=== PATIENT | male | born 1960 | race Caucasian/White ===

== ENCOUNTER 2025-08-10 13:26 | Observation (INO) ==
--- NOTE | 2025-08-10 13:58 | Emergency Department Note ---
Impression & Plan Chest pain, Shortness of breath ED Provider Note NAME: SHAMIR SIMMONS AGE: 65 SEX: M : 1960 ARRIVES VIA: Walk-In INFORMANT: Patient ED PROVIDER(S): Gilmer Hitchcock DO CHIEF COMPLAINT: Chest pain HPI: Patient is a 65-year-old male with a past medical history of indigestion who presents to the ER for left-sided chest pain. He notes this has been present for the past month. It comes and goes. Started this morning around 8 AM. Patient notes it has been coming and going today. Associated with shortness of breath. No arm or jaw pain. No belly pain. He did have nausea with it when it became severe. No dysuria, urgency or frequency. He notes it is better when he rests and worse when he is up moving around. ADDITIONAL HISTORY OBTAINED: provided additional history notes that he had a cough several weeks ago. Patient notes that he has not had a cough for over a week. Chronic Medical/Social Conditions Affecting Care: Per HPI PAST MEDICAL HISTORY:See Below PAST SURGICAL HISTORY:See Below FAMILY HISTORY:See Below SOCIAL HISTORY:See Below HOME MEDICATIONS:See Below ALLERGIES:See Below VITALS:See Below PHYSICAL EXAMINATION: GENERAL: Sitting up in bed, alert, well appearing, well nourished, no distress, non-toxic EYE EXAM: normal conjunctiva. PERRL and EOM's grossly intact. OROPHARYNX: no exudate, no erythema, lips, buccal mucosa, and tongue normal and mucous membranes are moist NECK: supple, no nuchal rigidity, no adenopathy, non-tender LUNGS: Clear to auscultation. Normal chest wall mechanics HEART: no murmurs, S1 normal and S2 normal ABDOMEN: abdomen soft, non-tender, normo-active bowel sounds, no masses, no rebound or guarding. BACK: Back is symmetrical on inspection and there is no deformity, no midline tenderness, no CVA tenderness. SKIN: no rashes and no bruising UPPER EXTREMITIES: upper extremities are grossly normal. Radial pulses are equal bilaterally LOWER EXTREMITIES: No pitting edema. Calves are equal bilaterally NEURO EXAM: Normal sensorium, cranial nerves II-XII grossly intact, normal speech, no gross weakness of arms, no gross weakness of legs. MEDICAL DECISION MAKING: Patient is a 65-year-old male who presents ER for above-stated complaint. IV was established and blood work was obtained. Labs showed no significant leukocytosis or anemia. BMP with LFTs bilirubin and lipase was unremarkable. Troponin was negative. Patient admits to exertional chest pain and shortness of breath that waxes and wanes. He was given nitro aspirin and morphine. Discussed case with the hospitalist for further evaluation management treatment. He notes he has been getting this off and on for the past month. Consults/Care Managements Discussions: Per [facility] Triage Nursing notes reviewed. Limited review of prior medical records performed Vital Signs: reviewed and remarkable for HTN Differential diagnosis: Cardiac ischemia, aortic dissection, pulmonary embolism, pneumothorax, pneumonia, pericarditis, myocarditis, esophageal rupture, GERD, cholecystitis, pancreatitis, musculoskeletal, as well as other pathologies. ER treatment provided: See below Diagnostics interpreted by me include EKG and cardiac monitoring as listed below: -Cardiac Monitoring: An order was placed for continuous cardiac monitoring. The monitor shows a rate of 90 with sinus rhythm. -ECG: Sinus rhythm rate 90 Normal axis T wave inversion in the inferior leads with nonspecific ST wave changes QTc 435 -Laboratory studies:Interpreted by me as stated above in MDM and shown below. Imaging studies: Xrays: As interpreted by me: Portable AP upright 1 view the chest shows no focal infiltrate CTs show: none Procedures:none Critical Care: None Past Med/Surg History Problem List (Updated 08/10/25 @ 16:52 by Gilmer Hitchcock DO) Shortness of breath (Acute) Chest pain (Acute) Small intestinal bacterial overgrowth Parsonage-Pickard syndrome right arm Brachial plexitis Tinnitus hx Insomnia Surgical History History of cardiac cath ~2015 at [facility] [place] - no stents. History of colonoscopy H/O cervical discectomy x3 levels fusion. has a difficult time looking down, otherwise has Full ROM. 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 Beliefs That Will Affect Care: None Current Living Situation: Spouse Feels Safe at Home: Yes Assistive Devices: Glasses and Hearing Aid - Bilateral Allergies Allergies Allergy/AdvReac Type Severity Reaction Status Date / Time No Known Allergies Allergy Verified 03/28/23 09:19 Home Meds Home Medications Medication Instructions Recorded Confirmed acetaminophen 650 mg 650 mg PO Q8H PRN Pain 09/09/22 08/10/25 tablet,extended release (Tylenol 8 Hour) Results & Data (ED) Vital Signs Vital Signs - 24 hr 08/10/25 13:30 08/10/25 13:46 08/10/25 13:46 Temperature 36.7 C Temperature Source Temporal Artery Scan Pulse Rate 94 H Pulse Rate [Apical] 85 Pulse Rate from SpO2 Sensor Respiratory Rate 18 17 Respiratory Effort / Characteristics Non-Labored Spontaneous Non-Labored Spontaneous Respiratory Depth Normal Normal Respiratory Pattern Regular Blood Pressure 165/91 H Blood Pressure [Right Arm] 182/97 H Blood Pressure Mean 115 Blood Pressure Mean [Right Arm] 125 Blood Pressure Position [Right Arm] Semi-fowlers Pulse Oximetry 98 99 Oxygen Delivery Method Room Air Room Air Room Air Sepsis Recent Fever Within 48 Hours No Sepsis New/Unexplained Change in Mental Status No Sepsis Action Taken by Nursing No Action Required 08/10/25 13:50 08/10/25 14:03 08/10/25 14:24 Temperature Temperature Source Pulse Rate Pulse Rate [Apical] 82 70 Pulse Rate from SpO2 Sensor Respiratory Rate 16 18 Respiratory Effort / Characteristics Non-Labored Spontaneous Respiratory Depth Normal Respiratory Pattern Regular Blood Pressure Blood Pressure [Right Arm] 170/97 H 138/87 Blood Pressure Mean Blood Pressure Mean [Right Arm] 121 104 Blood Pressure Position [Right Arm] Semi-fowlers Semi-fowlers Pulse Oximetry 99 99 97 Oxygen Delivery Method Room Air Room Air Room Air Sepsis Recent Fever Within 48 Hours Sepsis New/Unexplained Change in Mental Status Sepsis Action Taken by Nursing 08/10/25 14:58 08/10/25 15:00 08/10/25 15:00 Temperature Temperature Source Pulse Rate 65 64 Pulse Rate [Apical] Pulse Rate from SpO2 Sensor 64 Respiratory Rate 17 Respiratory Effort / Characteristics Respiratory Depth Respiratory Pattern Blood Pressure 147/84 H Blood Pressure [Right Arm] Blood Pressure Mean 104 Blood Pressure Mean [Right Arm] Blood Pressure Position [Right Arm] Pulse Oximetry 97 Oxygen Delivery Method Sepsis Recent Fever Within 48 Hours Sepsis New/Unexplained Change in Mental Status Sepsis Action Taken by Nursing 08/10/25 15:34 Temperature Temperature Source Pulse Rate Pulse Rate [Apical] 64 Pulse Rate from SpO2 Sensor Respiratory Rate 18 Respiratory Effort / Characteristics Non-Labored Spontaneous Respiratory Depth Normal Respiratory Pattern Regular Blood Pressure Blood Pressure [Right Arm] 132/76 Blood Pressure Mean Blood Pressure Mean [Right Arm] 94 Blood Pressure Position [Right Arm] Semi-fowlers Pulse Oximetry 98 Oxygen Delivery Method Room Air Sepsis Recent Fever Within 48 Hours Sepsis New/Unexplained Change in Mental Status Sepsis Action Taken by Nursing Laboratory Data 08/10/25 13:53 08/10/25 13:53 Lab Results 08/10/25 Range/Units 13:53 WBC 5.19 (4.8-10.8) K/ul RBC 4.59 L (4.70-6.10) M/uL Hgb 14.2 (14.0-18.0) g/dL Hct 39.8 L (42.0-52.0) % MCV 86.7 (80.0-100.0) fL MCH 30.9 (25.0-34.0) pg MCHC 35.7 (32.0-36.0) g/dL RDW Std Deviation 38.1 (36.4-46.3) fL RDW Coeff of Severino 11.9 (11.5-14.5) % Plt Count 186 (130-400) K/uL MPV 10.3 (9.4-12.4) fL Immature Gran % (Auto) 0.2 % Neut % (Auto) 65.3 % Lymph % (Auto) 23.1 % [place]upe % (Auto) 9.1 % Eos % (Auto) 1.5 % Baso % (Auto) 0.8 % Neut # (Auto) 3.39 (1.40-6.50) K/uL Lymph # (Auto) 1.20 (1.20-3.40) K/uL [place]upe # (Auto) 0.47 (0.11-0.59) K/uL Eos # (Auto) 0.08 (0.00-0.50) K/uL Baso # (Auto) 0.04 (0.00-0.20) K/uL Immature Gran # (Auto) 0.01 (0.01-0.20) K/uL Sodium 136 (136-145) mmol/L Potassium 4.2 (3.5-5.1) mmol/L Chloride 101 (98-107) mmol/L Carbon Dioxide 27 (21-32) mmol/L Anion Gap 8 (3-11) BUN 15 (6-23) mg/dl Creatinine 0.93 (0.6-1.4) mg/dl Est Cr Clr Drug Dosing 80.7 ml/min eGFR 90.56 BUN/Creatinine Ratio 16.1 (10-20) Glucose 108 H (70-99(Fasting)) mg/dl Calcium 9.7 (8.6-10.3) mg/dl Total Bilirubin 0.5 (0.2-1.0) mg/dl AST 21 (13-39) U/L ALT 14 (7-52) U/L Alkaline Phosphatase 53 (34-104) U/L Troponin I High Sens 2.5 (0-20) pg/ml Total Protein 8.0 (6.0-8.3) gm/dl Albumin 4.7 (3.4-5.0) gm/dl Globulin 3.3 (2.5-4.0) gm/dl Albumin/Globulin Ratio 1.4 (0.9-2) Lipase 31 (11-82) U/L Administered Medications Nitroglycerin (Nitroglycerin Sl 0.4 Mg/Tab Tab) 0.4 mg SL Q5M PRN PRN Reason: Chest Pain Stop: 09/09/25 13:57 Last Admin: 08/10/25 15:37 Dose: 0.4 mg Documented By: Admin: 08/10/25 14:07 Dose: 0.4 mg Documented By: SUMAN Discontinued Medications Aspirin (Aspirin Chew 324 Mg) 324 mg PO NOW STA Stop: 08/10/25 13:59 Last Admin: 08/10/25 14:09 Dose: 324 mg Documented By: SUMAN Sodium Chloride (Nss) 1,000 mls @ 999 mls/hr IV .Q1H1M ONE Stop: 08/10/25 15:01 Last Infusion: 08/10/25 15:35 Dose: Infused Documented By: Admin: 08/10/25 14:07 Dose: 999 mls/hr Documented By: SUMAN Morphine Sulfate (Morphine Sulfate 4 Mg/Ml 1 Ml Carp\Vial) 3 mg IV NOW STA Stop: 08/10/25 14:55 Last Admin: 08/10/25 15:05 Dose: 3 mg Documented By: SUMAN Imaging Data Radiologist's Impression: Chest X-Ray 08/10/25 13:34 Clinical History: Chest pain Technique: A frontal view of the chest was obtained Findings: There are no confluent pulmonary infiltrates. The heart size is within normal limits. No pleural effusion or pneumothorax is seen. There is no definite pulmonary nodule. No fracture is noted. There is a cervical fusion Impression: No active disease Electronically signed by Josué Boswell 08-10-2025 2:28 PM Discharge Plan Visit Data Chief Complaint: Chest Pain Stated Complaint: CHEST PAIN, SOB NAUSEA ED Provider: Gilmer Hitchcock Discharge Problem: Chest pain, Shortness of breath Condition: Fair Forms Stand Alone Forms: [facility] [employer] Prescriptions Prescriptions: No Action acetaminophen [Tylenol 8 Hour] 650 mg tablet extended release 650 mg PO Q8H PRN (Reason: Pain) Patient Comments: Referrals Referrals: Shamir Dhillon PA-C [Primary Care Provider] - Discharge Problem: Chest pain Qualifiers: Chest pain type: unspecified Qualified Code(s): R07.9 - Chest pain, unspecified
[2025-08-10] MEDS: NITROGLYCERIN SL 0.4 MG/TAB TAB SL PRN (14:07)
[2025-08-10] MEDS: SODIUM CHLORIDE 0.9% 1,000 ML IV ONE (14:07)
[2025-08-10 14:08] LABS: Hematocrit (blood only) 39.8 % (42.0-52.0); Hemoglobin 14.2 g/dL (14.0-18.0); Immature Granulocytes # (auto) 0.01 K/uL (0.01-0.20); Immature Granulocytes % (auto) 0.2 %; Mean Corpuscular Hemoglobin 30.9 pg (25.0-34.0); Mean Corpuscular Volume 86.7 fL (80.0-100.0); Platelet Count 186 K/uL (130-400); RDW Standard Deviation 38.1 fL (36.4-46.3); Red Blood Count 4.59 M/uL (4.70-6.10); White Blood Count 5.19 K/ul (4.8-10.8)
[2025-08-10] MEDS: ASPIRIN CHEW 324 MG PO STA (14:09)
[2025-08-10 14:26] LABS: Alanine Aminotransferase 14.0 U/L (7-52); Albumin Globulin Ratio 1.4 (0.9-2); Albumin Level 4.7 gm/dl (3.4-5.0); Alkaline Phosphatase 53.0 U/L (34-104); Anion Gap 8.0 (3-11); Bilirubin,Total 0.5 mg/dl (0.2-1.0); Blood Urea Nitrogen 15.0 mg/dl (6-23); Calcium 9.7 mg/dl (8.6-10.3); Carbon Dioxide 27.0 mmol/L (21-32); Chloride 101.0 mmol/L (98-107); Creatinine Clr Calc Pharmacy 80.7 ml/min; Globulin 3.3 gm/dl (2.5-4.0); Glucose 108.0 mg/dl (70-99(Fasting)); Lipase 31.0 U/L (11-82); Potassium 4.2 mmol/L (3.5-5.1); Sodium 136.0 mmol/L (136-145); Total Protein 8.0 gm/dl (6.0-8.3)
--- NOTE | 2025-08-10 14:28 | XRay Report ---
Clinical History: Chest pain Technique: A frontal view of the chest was obtained Findings: There are no confluent pulmonary infiltrates. The heart size is within normal limits. No pleural effusion or pneumothorax is seen. There is no definite pulmonary nodule. No fracture is noted. There is a cervical fusion Impression: No active disease Electronically signed by Josué Boswell 08-10-2025 2:28 PM
[2025-08-10] MEDS: MoRPHine SULFATE 4 MG/ML 1 ML CARP\\VIAL IV STA (15:05)
--- NOTE | 2025-08-10 15:57 | History & Physical Report ---
Date of Service August 10, 2025 Assessment & Plan (1) Atypical angina: (2) Shortness of breath: (3) History of cardiac cath: (4) Alcohol use: (5) Insomnia: Plan Mr. Arana is a 65yo gentleman with no significant PMH who presented to the ED with intermittent angina for one month. The angina worsened today associated with dyspnea on exertion, diaphoresis, and nausea. He will be admitted to tele and managed for atypical angina. #Atypical angina secondary to ?ACS vs less likely Pulmonary Embolism vs GERD vs other etiology ECG and CXR unremarkable per my interpretation. Troponin neg x 1. HEART Score 3- low risk. PERC score 1 (age)-cannot r/o PE -cardiology consult -trend troponins; if neg x 2 or downtrending then discontinue -d-dimer to r/o PE, if elevated then CTA chest -AM ECG -AM labs--BMP, CBC, A1C, and lipid panel to determine ASCVD risk -aspirin 81mg qdaily -nitroglycerin 0.4mg q5min prn -morphine 4mg q4h prn for pain #Alcohol Use -ativan 0.5mg bid for anxiety or withdrawal sx #Insomnia -melatonin prn -ativan as above #h/o Gastritis/GERD -famotidine 20mg bid for reflux, consider PPI if no relief Dispo: tele Diet: heart healthy DVT prophylaxsis: heparin, consider switch to lovenox tomorrow if no procedures Full Code History of Present Illness Chief Complaint: chest pain Primary Care Provider: Shamir Dhillon PA-C Mr. Arana is a 65yo gentleman with no significant PMH who presented to the ED for intermittent chest pain that started about a month ago. He was in his usual state of health until about a month ago when he started noticing off and on left sided chest pain. The pain progressively worsened today and was associated with shortness of breath that was worse with exertion, night sweats, and nausea. The SOB and nausea were relieved during his time in the ED after receiving nitroglycerin and morphine. The chest pain improved but is still present despite two doses of nitroglycerin in the ED. The chest pain occurs at rest and exertion but does not radiate. He does not smoke tobacco but drinks 4-6 beer cans per day. No known family history of cardiovascular disease. Of note, pt did have a similar chest pain in 2016 but cath was unremarkable and was told his sx were most likely related to stress. Today, he denies any stressors in his life as he is retired. Denies fever, chills, cough, travel hx, abdominal pain, or complaints. Allergies Allergy/AdvReac Type Severity Reaction Status Date / Time No Known Allergies Allergy Verified 03/28/23 09:19 Home Medications Medication Instructions Recorded Confirmed Type acetaminophen 650 mg 650 mg PO Q8H PRN Pain 09/09/22 08/10/25 History tablet,extended release (Tylenol 8 Hour) Past Med/Surg History Problem List (Updated 08/10/25 @ 17:13 by Jose David Leyva MD) Alcohol use Atypical angina Shortness of breath (Acute) Chest pain (Acute) Small intestinal bacterial overgrowth Parsonage-Pickard syndrome right arm Brachial plexitis Tinnitus hx Insomnia Surgical History History of cardiac cath ~[address] [facility] - no stents. History of colonoscopy H/O cervical discectomy x3 levels fusion. has a difficult time looking down, otherwise has Full ROM. Hx of appendectomy H/O sinus surgery H/O hernia repair bilateral inguinal hernia repair Family History Father Skin cancer Heart disease Mother Lymphoma Hypertension Grandfather Heart disease Other No family history of adverse response to anesthesia Social History Smoking Status: Never smoker Second Hand Exposure: No; Do You Dip or Chew Tobacco: No; Hx Alcohol Use: Yes Alcohol type: beer Hx Substance Use: No Preferred Language: Argentine Communication Ability: Effective Transformation Consultant Required: No Beliefs That Will Affect Care: None Current Living Situation: Spouse Feels Safe at Home: Yes Assistive Devices: Glasses and Hearing Aid - Bilateral Review of Systems Review of Systems: per HPI Physical Exam Physical Exam: GA: well groomed, well nourished in no apparent distress. AAOx3 HEENT: head normocephalic, atraumatic. EOMI RESP: vesicular breath sounds b/l. No wheezes, rhonchi, or rales CARDIOVASCULAR: S1 and S2 heard. No murmurs, rubs, or gallops. Radial pulses 2+ b/l RRR GI: Normoactive bowel sounds, no tenderness or masses felt to palpation MSK: no gross abnormalities or focal deficits. no chest wall tenderness. SKIN: warm, dry, no edema PSYCH: appropriate mood and affect NEURO: no focal deficits. speech fluent Results & Data Results & Data Vital Signs (Past 12 Hours) Vital Signs Temp Pulse Pulse Resp BP BP Pulse Ox 08/10/25 15:34 64 18 132/76 98 08/10/25 15:00 64 17 97 08/10/25 15:00 147/84 H 08/10/25 14:58 65 08/10/25 14:24 70 18 138/87 97 08/10/25 14:03 82 16 170/97 H 99 08/10/25 13:50 99 08/10/25 13:46 85 17 182/97 H 99 08/10/25 13:46 08/10/25 13:30 36.7 C 94 H 18 165/91 H 98 O2 Del Method 08/10/25 15:34 Room Air 08/10/25 15:00 08/10/25 15:00 08/10/25 14:58 08/10/25 14:24 Room Air 08/10/25 14:03 Room Air 08/10/25 13:50 Room Air 08/10/25 13:46 Room Air 08/10/25 13:46 Room Air 08/10/25 13:30 Room Air Supervising Physician Co-Signing Physician Notes Attending attestation Pt seen and examined in concert with Dr. Leyva. In agreement with the documented findings as noted in the resident documentation with any exceptions or additions as noted here. Patient resting in bed with spouse providing supplemental history. Ongoing left of sternum chest pain which waxes and wanes but was temporarily improved w/ nitr o/morphine administration and does not worsen with direct pressure. Correlating symptoms of nausea and SOB present with activity, without radiation. Pain is potentially similar to 10 years ago with stress induced symptoms w/ cardiac catheterization without effect. Routine primary care reported. Significant etOH history - 4-6 coors light nightly - reported by spouse and patient. No smoking hx. +ve gastritis/GERD history intermittently. VS as noted. On examination, S1/S2 nl RRR no MCG. CTAB. Abd NT/ND BS+ve. Chest pain - trend troponin until 2x negative or downtrending. Repeat EKG in AM. D-Dimer with next set of labs and consider CTA chest if positive. Famotidine BID for reflux, consider PPI if no improvement. Check lipids, A1c. etOH use - lorazepam 0.5mg PRN for anxiety and h/o chronic insomnia, but w/ low threshold for withdrawal protocol. Else see resident documentation as noted. Resident Activity Tracking Resident Involvement: Resident Care Provided Care Provided: Adult Hospital Medicine
[2025-08-10] MEDS ORDERED: LORazepam 0.5 MG TAB PO PRN (18:09)
[2025-08-10] MEDS ORDERED: MELATONIN 3 MG TAB PO PRN (18:09)
[2025-08-10] MEDS ORDERED: ONDANSETRON INJ 2 MG/ML 2 ML VIAL IV PRN (18:09)
[2025-08-10] MEDS ORDERED: POLYETHYLENE (MIRALAX) 17 GM PACK PO PRN (18:09)
[2025-08-10] MEDS ORDERED: ALUMINUM/MAGNESIUM SUSP 30 ML UDC PO PRN (18:09)
[2025-08-10] MEDS ORDERED: MoRPHine SULFATE 4 MG/ML 1 ML CARP\\VIAL IV PRN ×2 (18:09→19:14)
[2025-08-10] MEDS ORDERED: ACETAMINOPHEN 325 MG TAB PO PRN (18:09)
[2025-08-10] MEDS: HEPARIN SOD 5,000 UNIT/0.5 ML VIAL SQ SCH (20:11)
[2025-08-10] MEDS: FAMOTIDINE 20 MG TAB PO SCH (20:11)
[2025-08-11 06:20] LABS: Hematocrit (blood only) 37.2 % (42.0-52.0); Hemoglobin 13.0 g/dL (14.0-18.0); Immature Granulocytes # (auto) 0.01 K/uL (0.01-0.20); Immature Granulocytes % (auto) 0.2 %; Mean Corpuscular Hemoglobin 30.6 pg (25.0-34.0); Mean Corpuscular Volume 87.5 fL (80.0-100.0); Platelet Count 166 K/uL (130-400); RDW Standard Deviation 38.0 fL (36.4-46.3); Red Blood Count 4.25 M/uL (4.70-6.10); White Blood Count 4.76 K/ul (4.8-10.8)
[2025-08-11 07:06] VITALS: RESP 19
[2025-08-11 07:07] LABS: Anion Gap 8.0 (3-11); Blood Urea Nitrogen 16.0 mg/dl (6-23); Calcium 8.8 mg/dl (8.6-10.3); Carbon Dioxide 25.0 mmol/L (21-32); Chloride 105.0 mmol/L (98-107); Cholesterol 153.0 mg/dl (0-200); Creatinine Clr Calc Pharmacy 91.5 ml/min; HDL Cholesterol 56.0 mg/dl; Potassium 4.0 mmol/L (3.5-5.1); Sodium 138.0 mmol/L (136-145); Triglycerides 72.0 mg/dl (0-150)
[2025-08-11 07:19] LABS: Hemoglobin A1C 5.4 % (4.5-5.6)
[2025-08-11] MEDS: ASPIRIN 81 MG ECTAB PO SCH (08:04)
[2025-08-11 12:09] VITALS: BP 145/75; PULSE 64; TEMP 98.1; O2SAT 97
--- NOTE | 2025-08-11 13:02 | Cardiology Consultation ---
Date of Consultation August 11, 2025 Assessment & Plan (1) Atypical chest pain: (2) Alcohol use: Plan ASSESSMENT/PLAN: 1. Chest pain: Atypical and not consistent with ischemic heart disease. Prolonged episodes of up to 6 hours with negative high-sensitivity troponin, unremarkable ECG, and unremarkable echo. Symptoms improved with exertion. Given his significant alcohol use, recommend further evaluation from a GI perspective. Consider EGD if deemed appropriate by GI. Recommended avoiding alcohol. Ischemic evaluation not necessary at this time. 2. Alcohol use: Recommend that he avoid alcohol use as he consumes 4-5 beverages daily, on a chronic basis. He expressed understanding. 3. Disposition: Follow-up with PCP. Consider GI workup as above. Patient care communicated with primary hospitalist service, Dr. Saenz. Thank you for allowing me to participate in the care of your patient. Please call for any other questions or concerns. Sincerely, Mark Adair M.D. History of Present Illness Reason for Consultation: chest pain Requesting Physician: Jose David Leyva MD Attending Physician: Jose David Zapata MD History of Present Illness Mr. Arana is a very pleasant 65-year-old gentleman with history significant for alcohol use. He was admitted on 08/10/2025 with chest pain. The chest pain has been occurring over the past month or so. It is a left-sided chest pain described as a strong ache. Yesterday it was accompanied by shortness of breath and nausea. He believes it improved with nitroglycerin. He notes it mostly with rest. There is no specific trigger. Symptoms actually improved with exertion. He describes himself as a very active person and his agrees. He recently was using a sledgehammer, digging posts holes for a fence and putting up a fence and did so without exertional chest pain. Symptoms typically are more severe for an hour but persist consistently for 6 hours or so. He has had chest pain all day today and at the time of today's visit, approximately 6 hours plus. He feels better if he drinks fluids such as water and then belches. He had a cardiac catheterization in 2016 and he reports that it was normal. It was done in [place]. He denies syncope, near syncope, palpitations, edema, melena, hematochezia, or hematuria. Review of systems: As above. Family history: No known premature CAD. He does not know his biologic father's history but knows that he at the age of 99. Social history: He does not smoke. He consumes 4-6 alcoholic beverages (beer) daily, chronically. Denies drug abuse. Lives at home with his . 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 Has 2 biologic daughters and 2 stepdaughters. He has granddaughters. His was present at the bedside. 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 History of colonoscopy H/O cervical discectomy x3 levels fusion. has a difficult time looking down, otherwise has Full ROM. Hx of appendectomy H/O sinus surgery H/O hernia repair bilateral inguinal hernia repair Family History Father Skin cancer Heart disease Mother Lymphoma Hypertension Grandfather Heart disease Other No family history of adverse response to anesthesia Social History Smoking Status: Never smoker Second Hand Exposure: No; Do You Dip or Chew Tobacco: No; Hx Alcohol Use: Yes Alcohol type: beer Hx Substance Use: No Preferred Language: Yi Communication Ability: Effective Coiled Tubing Supervisor Required: No Beliefs That Will Affect Care: None Current Living Situation: Spouse Feels Safe at Home: Yes Safety Concerns: Feels Safe At This Time Assistive Devices: Glasses Physical Exam Physical Exam: Gen.: No acute distress. Alert and oriented. HEENT: Anicteric sclera. Neck: No JVD. No bruits. Normal carotid upstrokes bilaterally. Cardiac: Regular. Normal S1-S2. No murmurs, rubs, or gallops. Pulmonary: Clear to auscultation bilaterally without wheezes, rales, or rhonchi. Abdomen: Soft, nontender, nondistended, with normoactive bowel sounds. No bruits noted. Extremities: 2+ radial pulses bilaterally. 2+ posterior tibialis pulses bilaterally. No edema or cyanosis. Chest: Nontender to palpation. Results & Data Vital Signs (Past 12 Hours) Vital Signs Temp Pulse Pulse Resp BP Pulse Ox O2 Del Method 08/11/25 12:08 36.7 C 64 19 145/75 H 97 Room Air 08/11/25 07:11 61 08/11/25 07:05 36.4 C L 60 19 128/73 95 Room Air 08/11/25 02:39 36.6 C 67 16 118/68 96 Room Air Laboratory Results Laboratory Results - last 24 hr 08/10/25 08/10/25 08/11/25 13:53 18:31 05:39 WBC 5.19 4.76 L RBC 4.59 L 4.25 L Hgb 14.2 13.0 L Hct 39.8 L 37.2 L MCV 86.7 87.5 MCH 30.9 30.6 MCHC 35.7 34.9 RDW Std Deviation 38.1 38.0 RDW Coeff of Severino 11.9 11.9 Plt Count 186 166 MPV 10.3 10.9 Immature Gran % (Auto) 0.2 0.2 Neut % (Auto) 65.3 54.2 Lymph % (Auto) 23.1 30.9 Coleman % (Auto) 9.1 10.9 Eos % (Auto) 1.5 3.2 Baso % (Auto) 0.8 0.6 Neut # (Auto) 3.39 2.58 Lymph # (Auto) 1.20 1.47 Coleman # (Auto) 0.47 0.52 Eos # (Auto) 0.08 0.15 Baso # (Auto) 0.04 0.03 Immature Gran # (Auto) 0.01 0.01 D-Dimer < 190 Sodium 136 138 Potassium 4.2 4.0 Chloride 101 105 Carbon Dioxide 27 25 Anion Gap 8 8 BUN 15 16 Creatinine 0.93 0.82 Est Cr Clr Drug Dosing 80.7 91.5 eGFR 90.56 96.88 BUN/Creatinine Ratio 16.1 Glucose 108 H Fasting Glucose 87 Estimat Average Glucose 108 Hemoglobin A1c 5.4 Calcium 9.7 8.8 Total Bilirubin 0.5 AST 21 ALT 14 Alkaline Phosphatase 53 Troponin I High Sens 2.5 2.3 Total Protein 8.0 Albumin 4.7 Globulin 3.3 Albumin/Globulin Ratio 1.4 Triglycerides 72 Cholesterol 153 LDL Cholesterol, Calc 83 VLDL Cholesterol, Calc 14 HDL Cholesterol 56 Cholesterol/HDL Ratio 2.7 Lipase 31 Diagnostic Findings ECHO 08/11/25: 1. Normal left ventricular size and systolic function. EF 65-70%. No regional wall motion abnormalities. No left ventricular hypertrophy. 2. Normal right ventricular size and systolic function. 3. No significant valvular abnormalities. 4. No prior study available for comparison. Telemetry personally reviewed: Sinus rhythm. No arrhythmia. Labs reviewed and notable for normal high-sensitivity troponin, normal potassium, stable renal function, normal transaminase levels, mild anemia. ECGs personally reviewed: ECG 08/10/2025: Sinus rhythm 90 bpm. ECG 08/11/2025: Sinus bradycardia 57 bpm. History and physical report reviewed. Chest x-ray report reviewed from 08/10/2025: No active disease per radiology. Medications Administered Current Inpatient Medications Acetaminophen (Acetaminophen 325 Mg Tab) 650 mg PO Q8H PRN PRN Reason: Pain Al Hydrox/Mg Hydrox/Simethicone (Aluminum/Magnesium Susp 30 Ml Udc) 15 ml PO Q4H PRN PRN Reason: Dyspepsia Stop: 09/09/25 18:08 Aspirin (Aspirin 81 Mg Ectab) 81 mg PO QAM [facility] Stop: 09/10/25 08:59 Last Admin: 08/11/25 08:04 Dose: 81 mg Famotidine (Famotidine 20 Mg Tab) 20 mg PO BID [facility] Stop: 09/09/25 20:59 Last Admin: 08/11/25 08:04 Dose: 20 mg Heparin Sodium (Porcine) (Heparin Sod 5,000 Unit/0.5 Ml Vial) 5,000 units SQ Q12 [facility] Stop: 09/09/25 20:59 Last Admin: 08/11/25 08:02 Dose: Not Given Lorazepam (Lorazepam 0.5 Mg Tab) 0.5 mg PO Q12H PRN PRN Reason: Anxiety Stop: 09/09/25 18:08 Melatonin (Melatonin 3 Mg Tab) 3 mg PO HS PRN PRN Reason: Sleep Stop: 09/09/25 18:08 Morphine Sulfate (Morphine Sulfate 4 Mg/Ml 1 Ml Carp\Vial) 4 mg IV Q4H PRN PRN Reason: chest Pain or pain 6-10 Stop: 08/24/25 18:08 Nitroglycerin (Nitroglycerin Sl 0.4 Mg/Tab Tab) 0.4 mg SL Q5M PRN PRN Reason: Chest Pain Stop: 09/09/25 13:57 Last Admin: 08/10/25 15:37 Dose: 0.4 mg Ondansetron HCl (Ondansetron Inj 2 Mg/Ml 2 Ml Vial) 4 mg IV Q6H PRN PRN Reason: Nausea Stop: 09/09/25 18:08 Polyethylene Glycol (Polyethylene (Miralax) 17 Gm Pack) 17 gm PO DAILY PRN PRN Reason: Constipation Stop: 09/09/25 18:08 PG Care Time/CCT Total # of Minutes Spent Total Time Spent with Patient: Total time spent is greater than 50% in coordination of care (as documented) at patient's floor/unit and/or counseling patient: Coding Level of Care Code 63184 INT INP/OBS CARE 2/55MIN Diagnoses Atypical chest pain R07.89 Alcohol use F10.90
--- NOTE | 2025-08-11 13:07 | XCELERA ---
[id number]
--- NOTE | 2025-08-11 13:29 | Discharge Summary ---
Date of Service August 11, 2025 Admission HPI Per Admitting Provider Mr. Arana is a 65yo gentleman with no significant PMH who presented to the ED for intermittent chest pain that started about a month ago. He was in his usual state of health until about a month ago when he started noticing off and on left sided chest pain. The pain progressively worsened today and was associated with shortness of breath that was worse with exertion, night sweats, and nausea. The SOB and nausea were relieved during his time in the ED after receiving nitroglycerin and morphine. The chest pain improved but is still present despite two doses of nitroglycerin in the ED. The chest pain occurs at rest and exertion but does not radiate. He does not smoke tobacco but drinks 4-6 beer cans per day. No known family history of cardiovascular disease. Of note, pt did have a similar chest pain in 2016 but cath was unremarkable and was told his sx were most likely related to stress. Today, he denies any stressors in his life as he is retired. Denies fever, chills, cough, travel hx, abdominal pain, or complaints. Admission Exam Per Admitting Provider Physical Exam Physical Exam: GA: well groomed, well nourished in no apparent distress. AAOx3 HEENT: head normocephalic, atraumatic. EOMI RESP: vesicular breath sounds b/l. No wheezes, rhonchi, or rales CARDIOVASCULAR: S1 and S2 heard. No murmurs, rubs, or gallops. Radial pulses 2+ b/l RRR GI: Normoactive bowel sounds, no tenderness or masses felt to palpation MSK: no gross abnormalities or focal deficits. no chest wall tenderness. SKIN: warm, dry, no edema PSYCH: appropriate mood and affect NEURO: no focal deficits. speech fluent Principal Diagnosis Atypical chest pain Discharge Exam Constitutional WD/WN, vitals as above Eyes + anicteric sclerae and EOM intact bilaterally Respiratory normal respiratory effort, lungs clear to auscultation Cardiovascular Rate/Rhythm: regular rate and regular rhythm Heart Sounds: normal S1 and normal S2; no murmur No reproducible chest pain on palpation Gastrointestinal (Abdomen) Percussion/Palpation: abdomen soft; abdomen nontender Skin no rashes, warm and dry Psychiatric Eye Contact: good eye contact Speech: normal rate/rhythm/volume of speech Thought Process: goal directed thought process and linear/logical thought process Discharge Data Allergies Allergy/AdvReac Type Severity Reaction Status Date / Time No Known Allergies Allergy Verified 03/28/23 09:19 Consultations 08/10/25 15:12 ED Decision to Admit Stat 08/10/25 18:09 Consult Cardiology Routine Hospital Course (1) Shortness of breath: (2) History of cardiac cath: (3) Alcohol use: (4) Insomnia: Plan Mr. Arana is a 65yo gentleman with no significant PMH who presented to the ED with intermittent angina for one month. The angina worsened today associated with dyspnea on exertion, diaphoresis, and nausea. He will be admitted to tele and managed for atypical angina. #Atypical angina secondary to ?ACS vs less likely Pulmonary Embolism vs GERD vs other etiology ECG and CXR unremarkable per my interpretation. Troponin neg x 2. HEART Score 3- low risk. PERC score 1 (age)-cannot r/o PE -cardiology consult -trend troponins; if neg x 2 or downtrending then discontinue -d-dimer to r/o PE, if elevated then CTA chest -AM ECG -AM labs--BMP, CBC, A1C, and lipid panel to determine ASCVD risk -ASCVD risk is 13.3%. Recommend moderate to high-intensity statin. -aspirin 81mg qdaily -nitroglycerin 0.4mg q5min prn -morphine 4mg q4h prn for pain -Echo (08/11/25) * EF 65-70%. No kristen wall motion abnormalities. No left ventricular hypertrophy * Normal right ventricular size and systolic function * No significant valvular abnormalities -Continue famotidine 20mg BID until seeing PCP #Alcohol Use -ativan 0.5mg bid for anxiety or withdrawal sx -Discussed with patient to lower amount of alcohol use. #Insomnia -melatonin prn -ativan as above #h/o Gastritis/GERD -famotidine 20mg bid for reflux, consider PPI if no relief -Recommend EGD Dispo: tele Diet: heart healthy DVT prophylaxsis: heparin, consider switch to lovenox tomorrow if no procedures Full Code Total Time Total Time Spent Total Time Spent (In Minutes): per attending Discharge Plan Discharge Items Patient Disposition: Home - Self-Care Reason For Visit: CHEST PAIN Discharge Diagnosis: Atypical Chest Pain Condition on Discharge: Fair Activity: Resume your previous activity Non-emergency contact: Primary Care Provider Call non-emergency contact if: your symptoms worsen, your pain is not controlled and your temperature is above 101 Follow-up/Referrals: Shamir Dhillon, CHRISTIANO [Primary Care Provider] - Diet: Regular Addtl Attending Provider Instructions: You presented into the hospital for atypical chest pain. We preformed EKG's which did not show any heart attack. We also preformed an echo to see what your heart function is like, which came back showing your heart is functioning normally. We also got labwork done and it came back unremarkable. Your atypical chest pain is most likely from the amount of alcohol that you drink. I recommend you start lowering the amount of beer you drink per day. Not only will this help with the acid in your stomach, but also help your liver. Please see your PCP within the next two weeks to discuss alcohol intake and acid production. We also recommend you get an EGD (a scope to look at your stomach and esophagus) in the near future. Please contact your PCP/come to the ED if you notice coughing up blood or tarry black stools. New Medications * famotidine 20mg twice a day until you see your PCP It was a pleasure meeting and treating you. I hope you have a wonderful holiday. Pending Studies at Discharge: No Stand-Alone Forms: My [facility], Smoking Cessation Medications and DC Order Prescriptions: New famotidine 20 mg Tablet 20 mg PO BID 14 Days Qty: 28 0RF Continued acetaminophen [Tylenol 8 Hour] 650 mg tablet extended release 650 mg PO Q8H PRN (Reason: Pain) Patient Comments: Discharge Orders: Discharge Order (Routine); Ordered 08/11/25 Ordered By: Edgar Saenz Admission Data Admit Date/Time: 08/10/25 16:57 Attending Provider: Jose David Zapata Admit Provider: Jose David Leyva Primary Care Provider: Shamir Dhillon Other Providers: Aman Gamboa; Miller Adair Other Interventions: Discharge Summary Assessment (RN) Last Done: 08/11/25 13:24 Supervising Physician Co-Signing Physician Notes Attending attestation Pt seen and examined in concert with Dr. Saenz. In agreement with the documented findings as noted in the resident documentation with any exceptions or additions as noted here. Patient resting in bed with spouse providing supplemental history. Resolution of presenting chest pain without recurrence. Significant etOH history - 4-6 coors light nightly - reported by spouse and patient. No smoking hx. +ve gastritis/GERD history intermittently. VS as noted. On examination, S1/S2 nl RRR no MCG. CTAB. Abd NT/ND BS+ve. Chest pain w/ remote h/o cardiac catheterization without concern (10 years ago) - d-dimer and troponin 2x negative. Continue famotidine BID for reflux and follow up with PCP. etOH use - extensive counseling re: cessation and health risks Else see resident documentation as noted. Total attending physician time spent with this patient's care on the day of discharge: 35 minutes. Resident Activity Tracking Resident Involvement: Resident Care Provided Care Provided: Adult Hospital Medicine
--- NOTE | 2025-08-12 22:11 | Electrocardiogram Report ---
Test Reason : Blood Pressure : */* mmHG Vent. Rate : 90 BPM Atrial Rate : 90 BPM P-R Int : 184 ms QRS Dur : 86 ms QT Int : 356 ms P-R-T Axes : 59 19 20 degrees QTcB Int : 435 ms Normal sinus rhythm Possible Left atrial enlargement Cannot rule out Inferior infarct , age undetermined Abnormal ECG No previous ECGs available Confirmed by Miller Adair ([id number]) on 08/12/2025 10:11:42 PM Referred By: REFERRED SELF Confirmed By: Miller Adair
--- NOTE | 2025-08-12 22:12 | Electrocardiogram Report ---
Test Reason : Blood Pressure : */* mmHG Vent. Rate : 57 BPM Atrial Rate : 57 BPM P-R Int : 196 ms QRS Dur : 96 ms QT Int : 432 ms P-R-T Axes : 46 35 16 degrees QTcB Int : 420 ms Sinus bradycardia Otherwise normal ECG When compared with ECG of 10-Aug-2025 13:41, Vent. rate has decreased by 33 bpm Nonspecific T wave abnormality no longer evident in Lateral leads Confirmed by Miller Adair ([id number]) on 08/12/2025 10:11:59 PM Referred By: REFERRED SELF Confirmed By: Miller Adair
== END 2025-08-11 13:49 | disposition home or self-care (01) | DRG 313 ==
LOC: SUATTDRO → ED 13:26 → 4W 16:57 → INTOOBSV 16:57 → 4W 17:49